=== PATIENT | female | born 1960 | race Caucasian/White ===

== ENCOUNTER 2024-11-01 09:27 | Outpatient (CLI) | payer MEDICARE ==
[2024-11-01] MEDS ORDERED: Iopamidol 370 76% 100 ML VIAL ONE (11:31)
== END 2024-11-01 09:28 | disposition home or self-care (01) ==
LOC: CSHCT 09:27
PROVIDERS: ATTEND Internal Medicine Cardiovascular Disease
DX: Q23.1 Congenital insufficiency of aortic valve (principal); R91.1 Solitary pulmonary nodule; I77.810 Thoracic aortic ectasia; I70.0 Atherosclerosis of aorta; E27.8 Other specified disorders of adrenal gland; N28.1 Cyst of kidney, acquired; N20.0 Calculus of kidney; K76.89 Other specified diseases of liver
CPT/HCPCS: 36415; 71275; 74175; 82565; Q9967